=== PATIENT | female | born 1970 | race Caucasian/White ===

== ENCOUNTER 2016-05-27 10:01 | Inpatient (IN) | payer MEDICARE, MEDICAID ==
[~2016-05-27 10:01] MED LIST: AMITIZA24 MC1 PO; BACLOFEN20 M1 PO; BISCOLAX10 MG PR; CIPRO500 M2 PO; DULCOLAX10 MG RC; EFFEXOR XR150 M1 PO; KEPPRA500 M3 PO; MILK OF MAGNESIA PO; MIRALAX17 G2 PO; MYSOLINE50 M3 PO; NYSTATIN1 EA10 TP; SENNA8.6 M2 PO; SULFAMYLON SOL250 M1 TOP; THERA-M1 EAC1 PO; TYLENOL325 M2 PO; URECHOLINE25 M2 PO; ZANAFLEX2 M3 PO; ZOLOFT50 M1 PO
[2016-05-27] MEDS ORDERED: ULTRAM50 M1 PO (11:20)
[2016-05-27 12:42] LABS: BASO % 1.4 % (0-2); BASO ABSOLUTE COUNT 0.1 tho/cmm (0.0-0.2); EOS % 4.6 % (0-7); EOSINOPHIL ABSOLUTE COUNT 0.3 tho/cmm (0.0-0.7); HCT-HEMATOCRIT 43.9 % (34.0-49.0); HGB-HEMOGLOBIN 14.1 gm/dl (12.0-15.5); IMMATURE GRANULOCYTES ABSOLUTE 0.18 tho/cmm (0-0.03); IMMATURE GRANULOCYTES PERCENT 2.5 % (0-0.3); LYMPH % 36.6 % (20-45); LYMPH ABSOLUTE COUNT 2.7 tho/cmm (0.8-4.5); MCH (MEAN CORPUSCULAR HGB) 25.7 pg (28.0-32.0); MCHC MEAN CORPUSCULAR HGB CONC 32.1 % (32.0-36.0); MEAN PLATELET VOLUME 10.7 cmc (9.4-12.4); MONO % 6.4 % (0-12); MONOCYTE ABSOLUTE COUNT 0.5 tho/cmm (0.0-1.2); NEUTROPHIL ABSOLUTE COUNT 3.6 tho/cmm (1.6-8.0); NEUTROPHIL-AUTOMATED 3.6 tho/cmm (1.6-8.0); NEUTROPHILS % 48.5 % (40-80); PLATELET COUNT 183 tho/cmm (150-450); RED BLOOD COUNT 5.49 mil/cmm (4.00-5.20); RED CELL DISTRIBUTION WIDTH 17.4 % (12.4-16.4); WHITE BLOOD COUNT 7.3 tho/cmm (4.0-10.0)
[2016-05-27 12:51] LABS: ALB/GLOB RATIO 0.7 (0.8-2.0); ALBUMIN 3.1 g/dl (3.5-5.0); ALKALINE PHOSPHATASE 65 U/L (33-138); ALT/SGPT 26 U/L (12-78); BILIRUBIN,TOTAL 0.3 mg/dl (0-1.5); BLOOD UREA NITROGEN 5 mg/dl (6-24); CALCIUM 8.5 mg/dl (8.5-10.5); CARBON DIOXIDE-VENOUS 23 mmol/L (22-32); CHLORIDE 109 mmol/l (96-110); CREATININE 0.59 mg/dl (0.50-1.10); GLUCOSE 91 mg/dL (70-110); PREALBUMIN 22.5 mg/dl (20.0-40.0); SODIUM 141 mmol/L (135-145); eGFR VALUE FOR BLACK >60 mL/Min
[2016-05-27 13:04] LABS: ANION GAP 15 mmol/L (0-20); AST/SGOT 48 U/L (10-40); POTASSIUM 5.6 mmol/L (3.7-5.1)
[2016-05-27 14:09] LABS: URINE BILIRUBIN NEGATIVE (NEG); URINE BLOOD MODERATE (NEG); URINE GLUCOSE (UA) NEGATIVE (NEG); URINE KETONE NEGATIVE (NEG); URINE LEUKOCYTE ESTERASE POSITIVE (NEG); URINE NITRITE NEGATIVE (NEG); URINE PROTEIN NEGATIVE (NEG)
[2016-05-27 14:12] LABS: URINE APPEARANCE CLOUDY; URINE COLOR YELLOW; URINE SPECIFIC GRAVITY 1.008 (1.003-1.030)
[2016-05-27 14:21] LABS: URINE AMORPHOUS 1+; URINE RBC 0 /[HPF] (0-5); URINE WBC 15-20 /[HPF] (0-5)
[2016-05-28 06:40] LABS: ANION GAP 15 mmol/L (0-20); BLOOD UREA NITROGEN 6 mg/dl (6-24); CALCIUM 8.8 mg/dl (8.5-10.5); CARBON DIOXIDE-VENOUS 22 mmol/L (22-32); CHLORIDE 109 mmol/l (96-110); CREATININE 0.59 mg/dl (0.50-1.10); GLUCOSE 78 mg/dL (70-110); SODIUM 141 mmol/L (135-145); eGFR VALUE FOR BLACK >60 mL/Min
[2016-05-28 06:45] LABS: POTASSIUM 4.8 mmol/L (3.7-5.1)
[2016-06-03 05:53] LABS: BASO % 0.5 % (0-2); BASO ABSOLUTE COUNT 0.1 tho/cmm (0.0-0.2); EOS % 4.6 % (0-7); EOSINOPHIL ABSOLUTE COUNT 0.5 tho/cmm (0.0-0.7); HCT-HEMATOCRIT 38.3 % (34.0-49.0); HGB-HEMOGLOBIN 12.2 gm/dl (12.0-15.5); IMMATURE GRANULOCYTES ABSOLUTE 0.08 tho/cmm (0-0.03); IMMATURE GRANULOCYTES PERCENT 0.8 % (0-0.3); LYMPH % 30.4 % (20-45); LYMPH ABSOLUTE COUNT 3.1 tho/cmm (0.8-4.5); MCH (MEAN CORPUSCULAR HGB) 25.8 pg (28.0-32.0); MCHC MEAN CORPUSCULAR HGB CONC 31.9 % (32.0-36.0); MEAN PLATELET VOLUME 10.6 cmc (9.4-12.4); MONO % 7.9 % (0-12); MONOCYTE ABSOLUTE COUNT 0.8 tho/cmm (0.0-1.2); NEUTROPHIL ABSOLUTE COUNT 5.6 tho/cmm (1.6-8.0); NEUTROPHIL-AUTOMATED 5.6 tho/cmm (1.6-8.0); NEUTROPHILS % 55.8 % (40-80); PLATELET COUNT 205 tho/cmm (150-450); RED BLOOD COUNT 4.73 mil/cmm (4.00-5.20); RED CELL DISTRIBUTION WIDTH 17.5 % (12.4-16.4); WHITE BLOOD COUNT 10.1 tho/cmm (4.0-10.0)
[2016-08-05] MEDS ORDERED: TYLENOL325 M2 PO ×2 (11:40→11:41)
[2016-08-05] MEDS ORDERED: MILK OF MAGNESIA PO (11:57)
[2016-08-05] MEDS ORDERED: SIMETHICONE80 M3 PO (12:02)
[2016-08-05] MEDS ORDERED: IBUPROFEN400 M1 PO (12:03)
[2016-08-05] MEDS ORDERED: ENEMEEZ283 MG/5 M PR (12:06)
[2016-08-05] MEDS ORDERED: MYRBETRIQ25 M1 PO (12:41)
[2016-08-05] MEDS ORDERED: DULCOLAX5 M1 PO (12:42)
[2016-08-05] MEDS ORDERED: PRIMIDONE50 M1 PO (12:43)
== END 2016-06-10 14:50 | DRG 570 ==
LOC: WCC 10:01 → BURN 11:25 → ORW 06-06 16:32 → BURN 06-06 17:59
PROVIDERS: Surgery; ADMIT Surgery
PROC: 0QB10ZZ Excision of Sacrum, Open Approach (ICD-10-PCS; principal; 2016-05-30)
PROC: 0JB70ZZ Excision of Back Subcutaneous Tissue and Fascia, Open Approach (ICD-10-PCS; 2016-05-30)
PROC: 02HV33Z Insertion of Infusion Device into Superior Vena Cava, Percutaneous Approach (ICD-10-PCS; 2016-06-01)
PROC: 0QB10ZZ Excision of Sacrum, Open Approach (ICD-10-PCS; 2016-06-06)
DX: L89.314 Pressure ulcer of right buttock, stage 4 (principal); G81.91 Hemiplegia, unspecified affecting right dominant side; B96.20 Unspecified Escherichia coli [E. coli] as the cause of diseases classified elsewhere; B96.4 Proteus (mirabilis) (morganii) as the cause of diseases classified elsewhere; F32.9 Major depressive disorder, single episode, unspecified; F81.9 Developmental disorder of scholastic skills, unspecified; S43.084A Other dislocation of right shoulder joint, initial encounter; N31.2 Flaccid neuropathic bladder, not elsewhere classified; Z99.3 Dependence on wheelchair; Z90.49 Acquired absence of other specified parts of digestive tract; Z86.14 Personal history of Methicillin resistant Staphylococcus aureus infection
CPT/HCPCS: C1751; G0463; J0171; J0744; J1200; J1335; J1720; J2270; J3010; J7999; Q9967

== ENCOUNTER 2016-08-06 11:05 | Day surgery (SDC) | payer OTHER, MEDICAID ==
[~2016-08-06 11:05] MED LIST changes: +DULCOLAX5 M1 PO; +ENEMEEZ283 MG/5 M PR; +IBUPROFEN400 M1 PO; +MYRBETRIQ25 M1 PO; +PRIMIDONE50 M1 PO; +SIMETHICONE80 M3 PO; +ULTRAM50 M1 PO
[2016-08-06] MEDS ORDERED: BISCOLAX10 MG PR (16:34)
[2016-08-07] MEDS ORDERED: NORCO 5-325 TA1 EACH PO (07:15)
== END 2016-08-07 14:15 ==
LOC: SRG 11:05 → SHSB 11:06 → ORW 13:35 → PACU 15:20 → BURN 16:10
PROC: 0HB8XZZ Excision of Buttock Skin, External Approach (ICD-10-PCS; principal; 2016-08-07)
DX: L89.314 Pressure ulcer of right buttock, stage 4 (principal); G82.50 Quadriplegia, unspecified; G83.9 Paralytic syndrome, unspecified; K56.69 Other intestinal obstruction; Z88.0 Allergy status to penicillin; Z88.8 Allergy status to other drugs, medicaments and biological substances; Z91.013 Allergy to seafood; Z79.899 Other long term (current) drug therapy
CPT/HCPCS: G8978-GP-CM; G8979-GP-CM; G8980-GP-CM; J0171; J3260; J3370